=== PATIENT | female | born 1990 | race Caucasian/White ===

== ENCOUNTER 2021-06-26 01:17 | Outpatient (CLI) | payer MEDICARE, SELFPAY ==
[2021-06-26 08:41] LABS: HCT 40.3 % (36.0-46.0); HGB 13.2 g/dL (11.2-15.7); MCH 30.4 pg (27.0-33.0); MCHC 32.8 % (32.0-36.0); MCV 92.9 fL (80-95); MPV 8.6 fL (8.0-11.0); Platelet Count 281 10^3/uL (130-400); RBC 4.34 10^6/uL (3.93-5.22); RDW 12.2 % (11.7-14.6); RDW-SD 42.5 fL; WBC 7.52 10^3/uL (4.4-10.8)
[2021-06-26 20:12] LABS: COVID-19 PCR Negative (Negative)
[2021-06-26 20:13] LABS: Source Nasal/Nares
== END 2021-06-26 01:18 | disposition home or self-care (01) ==
LOC: LBO 01:17
PROVIDERS: PCP Physician Assistant; Visit Provider Obstetrics & Gynecology Gynecology
DX: N94.89 Other specified conditions associated with female genital organs and menstrual cycle (principal); F43.12 Post-traumatic stress disorder, chronic; Z20.822 Contact with and (suspected) exposure to COVID-19; Z01.818 Encounter for other preprocedural examination; Z01.812 Encounter for preprocedural laboratory examination
CPT/HCPCS: 36415; 85027; 86850; 86900; 86901; 87635

== ENCOUNTER 2021-06-26 01:35 | Outpatient (CLI) | payer MEDICARE, MEDICAID, SELFPAY | END 2021-06-26 01:36 | disposition home or self-care (01) | LOC: LBO 01:35 | PROVIDERS: PCP Physician Assistant; Visit Provider Obstetrics & Gynecology Gynecology ==

== ENCOUNTER 2021-06-28 06:10 | Day surgery (SDC) | payer MEDICARE, MEDICAID, SELFPAY ==
[2021-06-28 06:15] VITALS: BP 125/79; PULSE 76; RESP 16; TEMP 37.1; O2SAT 98
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
[2021-06-28] MEDS: Lactated Ringers 1,000 ML 125 ML IV (07:07)
[2021-06-28 07:14] VITALS: BMI 36.1
--- NOTE | 2021-06-28 07:16 | W.ANESPOSTOP ---
Postoperative Evaluation Vital Signs Most Recent Imported Vital Signs: Most Recent Vital Signs Temp Pulse Resp BP Pulse Ox 37.1 C 76 16 125/79 98 06/28/21 06:15 06/28/21 06:15 06/28/21 06:15 06/28/21 06:15 06/28/21 06:15 Pain Score Most Recent Pain Score: Most Recent Pain Score Pain Level 0 06/28/21 06:15
[2021-06-28 08:15] VITALS: BP 95/59; PULSE 95; RESP 16; TEMP 36.7; O2SAT 96
--- NOTE | 2021-06-28 08:15 | PAPFT_PTH ---
PATIENT: Nel Nesbitt LOC: [facility] U#:[id number] AGE/SX: 30/F ROOM: RE06/28/[address]: Xenia Puentes : 1990 BED: DIS: 06/28/2021 SPEC #: [id number] RECD: 06/28/21 13:10 STATUS: [place] [place] #: [id number] JHONATAN: 06/28/21 08:[address]: Xenia Puentes DEPT: [facility] Cytology RECD BY: Aliza Silva ENTERED: 06/28/21 13:10 SP TYPE: PAPFT OTHR DR: Quin Tinajero V Tissues: 1 - CX/ENDOCX FOR PAP SMEARS Procedures: PAP THIN PREP/UVM Screening HPV DNA PROBE Comments: [id number]
[2021-06-28] MEDS: Silver Nitrate Stick 1 EACH (08:19)
--- NOTE | 2021-06-28 08:23 | W.PM.DSUDISC ---
Discharge Plan Disposition Patient Disposition: HOME Condition: Good Discharge Details Attending Provider: Xenia Puentes Primary Care Provider: Quin Tinajero V Home Meds and New Rx's Prescriptions: No Action medroxyprogesterone [Depo-Provera] 150 mg/mL suspension 150 mg IM [id number] 0RF loratadine [Claritin] 10 mg tablet 10 mg PO HS 0RF prazosin 1 mg capsule 1 mg PO QHS 0RF levonorgestrel-ethinyl estrad 0.15 mg-30 mcg (91) tablets,dose pack,3 month See Rx Instructions PO .COMPLEX Qty: 91 4RF Rx Instructions: take 1 tablet daily following the order on blister card(s) PO ergocalciferol (vitamin D2) [Vitamin D2] 1,250 mcg (50,000 unit) capsule 1,250 mcg PO DIRECTED 0RF Label Comments: take one capsule by mouth once weekly for vitamin d deficiency Discharge Instructions Additional Instructions: You have a vaginal yeast infection. I am going to prescribe a tablet for you to take tomorrow. I will follow up with you in 2 weeks in the [facility] office. You will have pain and burning at the outside of the vagina. There is thick yellow paste that I placed on the outside of the vagina.It's OK with pour water over the vagina when you urinate. I recommend that you do it today and tomorrow until the burning goes away. Stand Alone Forms: DSU Post Gynecology Surgery Activity:: Activity as Tolerated Diet:: As Tolerated DS: Diagnosis Discharge Diagnosis (1) PTSD (post-traumatic stress disorder): Status: Acute (2) Encounter for Papanicolaou smear for cervical cancer screening: Status: Acute
[2021-06-28 08:46] VITALS: BP 101/71; PULSE 78; RESP 16; TEMP 36.6; O2SAT 98
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
--- NOTE | 2021-06-28 10:08 | W.ANESPOSTOP ---
Postoperative Evaluation Date, Time and Location Date Performed: 06/28/21 Time Performed: 09:10 Patient Location: Day Surgery Unit Vital Signs Most Recent Imported Vital Signs: Most Recent Vital Signs Temp Pulse Resp BP Pulse Ox 36.6 C 78 16 101/71 98 06/28/21 08:46 06/28/21 08:46 06/28/21 08:46 06/28/21 08:46 06/28/21 08:46 Pain Score Most Recent Pain Score: Most Recent Pain Score Pain Level 3 06/28/21 08:46 Assessment Mental Status: Awake (Alert & Oriented to Patient Baseline) Airway and Respiratory Function: Patent airway with normal (patient baseline) respiratory exam Cardiovascular Function: Hemodynamically Stable Hydration Status: Adequately Hydrated Nausea & Vomiting: No Nausea or Vomiting Pain: Pain is tolerable per patient Peripheral Nerve Block: Patient did not receive a nerve block
[2021-06-29 15:26] LABS: Chlamydia Result Negative (Negative); GC Result Negative (Negative)
== END 2021-06-28 09:20 | disposition home or self-care (01) ==
PROVIDERS: PCP Physician Assistant; Visit Provider Obstetrics & Gynecology Gynecology
PROC: (CPT 57410; principal; 2021-06-28 07:30)
DX: N94.6 Dysmenorrhea, unspecified (principal); Z12.4 Encounter for screening for malignant neoplasm of cervix; Z11.51 Encounter for screening for human papillomavirus (HPV); R87.610 Atypical squamous cells of undetermined significance on cytologic smear of cervix (ASC-US); B37.3 Candidiasis of vulva and vagina; Z91.89 Other specified personal risk factors, not elsewhere classified; F43.10 Post-traumatic stress disorder, unspecified; F17.210 Nicotine dependence, cigarettes, uncomplicated; Z91.410 Personal history of adult physical and sexual abuse; Z11.3 Encounter for screening for infections with a predominantly sexual mode of transmission
CPT/HCPCS: 57410; 81025; 87491; 87591; 88142; 87624; J2001; J2405; J2704